=== PATIENT | female | born 1960 | race Caucasian/White ===

== ENCOUNTER → 2018-12-02 | Outpatient (CLI) | payer BC ==
--- NOTE | 2018-12-03 08:47 | Diagnostic Imaging Report ---
MRI of the left shoulder without contrast. History: Shoulder pain. Impingement syndrome. Decreased range of motion. Pain not responding to conservative management. Comparison: None Technique: Coronal PD FS, sagital PD FS, and axial PD and PD FS. Findings: Rotator cuff: Mild rotator cuff tendinosis without tear, muscle atrophy or retraction. Osseous acromion complex: Type II acromion with mild lateral downsloping. Mild degenerative arthrosis at the acromioclavicular joint with undersurface spurring and narrowing of the supraspinatus tendon outlet. Minimal subacromial/subdeltoid bursitis. Glenohumeral joint: Degeneration and fraying of the labrum. Articular cartilage fraying and deep fissuring in the mid and inferior glenoid with subchondral cystic change and bone marrow edema. The humeral head is well-seated in the glenoid fossa. Biceps tendon: The biceps tendon is intact. Other findings: Negative for muscle denervation or osseous fracture. Impression: Mild rotator cuff tendinosis without tear, muscle atrophy or retraction. Moderate degenerative arthrosis in the glenohumeral joint with subchondral cystic change and mild bone marrow edema in the mid and inferior glenoid. Mild degenerative arthrosis at the acromioclavicular joint with minimal subacromial/subdeltoid bursitis. Signed by: Dr. Hossein Mccormick M.D. on 12/03/2018 8:43 AM
== END ==
LOC: MRI 16:22
PROVIDERS: ATTEND Specialist
DX: M75.42 Impingement syndrome of left shoulder (principal)

== ENCOUNTER → 2018-12-30 | Outpatient (CLI) | payer BC ==
--- NOTE | 2018-12-30 15:39 | Diagnostic Imaging Report ---
Examination: MRI SPINE CERVICAL WO CONTRAST History: Right-sided neck pain which radiates down the right arm. Comparison studies: None Technique: Sagittal T1, T2 and IR, axial T2 and axial gradient echo intravenous contrast: None Findings: Alignment: Normal lordosis. No scoliosis. Cervicomedullary junction: No abnormalities. Patent foramen magnum. Soft tissues: No T2 hyperintense inflammatory changes. Spinal cord: Normal in size and signal from the foramen magnum through T1. Vertebrae: No fractures, infection or neoplasm. Degenerative changes: C1-C2: No abnormalities. C2-C3: Small central disc protrusion. Mild bilateral facet arthropathy. No foraminal or canal stenosis. C3-C4: Diffuse disc osteophyte complex and bilateral uncovertebral arthropathy result in mild right neural foraminal narrowing. No left foraminal or canal stenosis. Mild retrolisthesis (2 mm). C4-C5: Diffuse disc bulge and bilateral uncovertebral arthropathy result in mild left neural foraminal narrowing. No right foraminal or canal stenosis. C5-C6: Diffuse disc osteophyte complex and bilateral uncovertebral arthropathy result in moderate bilateral neural foraminal narrowing and mild canal stenosis. Bilateral nerve root sleeve cysts are seen (4.4 mm on the right and 4.2 mm on the left). C6-C7: Asymmetric to left disc bulge and bilateral uncovertebral arthropathy. No foraminal or canal stenosis. A 5.6 mm right and 6.1 mm left nerve root sleeve cyst. C7-T1: No abnormalities. IMPRESSION: 1. Degenerative changes from C2-C3 through C6-C7 with moderate bilateral neural foraminal narrowing and mild canal stenosis at C5-C6 2. 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 3. Mild retrolisthesis of C3 on C4 (2 mm). Signed by: Dr. Laurel Abarca M.D. on 12/30/2018 3:36 PM
== END ==
LOC: MRI 09:43
PROVIDERS: ATTEND Specialist
DX: M47.812 Spondylosis without myelopathy or radiculopathy, cervical region (principal)
CPT/HCPCS: 72141

== ENCOUNTER 2019-04-24 10:44 | Outpatient (RCR) | payer BC | END 2019-05-03 | LOC: PT 10:44 | PROVIDERS: ATTEND Specialist | DX: M75.42 Impingement syndrome of left shoulder (principal); M47.812 Spondylosis without myelopathy or radiculopathy, cervical region ==